=== PATIENT | female | born 2000 | race Caucasian/White ===

== ENCOUNTER 2022-06-19 10:06 | Emergency (ER) | payer BC ==
[~2022-06-19] VITALS: Ht 154.9 cm; Wt 89.0 kg
[2022-06-19] MEDS ORDERED: LIDOcaine 1% W/epiNEPHrine 1:100,000 20ml vial SQ ONE (10:55)
[2022-06-19] MEDS ORDERED: LIDOCAINE 1%/EPI 1:100,000 inj. 10 ML multi-dose vial SQ ONE (10:55)
[2022-06-19] MEDS ORDERED: LORazepam 2 mg/ml vial IV ONE (11:50)
[2022-06-19] MEDS ORDERED: ondansetron/PF 4mg/2ml inj IV ONE (11:50)
[2022-06-19] MEDS ORDERED: ketamine 10mg/ml 20ml inj vial IV ONE (11:50)
[2022-06-19] MEDS ORDERED: ESCI20TA PO (12:32)
[2022-06-19 13:40] VITALS: BP 117/74
== END 2022-06-19 14:10 | disposition home or self-care (01) ==
LOC: ER 10:07
DX: S52.514A Nondisplaced fracture of right radial styloid process, initial encounter for closed fracture (principal); M25.531 Pain in right wrist; F32.A Depression, unspecified; Z98.890 Other specified postprocedural states; Z72.89 Other problems related to lifestyle; Z79.899 Other long term (current) drug therapy; W00.0XXA Fall on same level due to ice and snow, initial encounter; Y93.89 Activity, other specified; Y92.89 Other specified places as the place of occurrence of the external cause; Y99.8 Other external cause status
CPT/HCPCS: 25605; 73100; 96374; 96375; 99152; 99285; J2060; J2405; J7030; 94760; A4565; A4620; A6446; A6449